=== PATIENT | female | born 1970 | race Two or more races ===

== ENCOUNTER 2018-07-23 09:42 | Outpatient (CLI) | payer BC | END 2018-07-23 23:59 | disposition home or self-care (01) | LOC: RAD 09:42 | PROVIDERS: ATTEND Family Medicine | DX: M25.511 Pain in right shoulder (principal); R20.9 Unspecified disturbances of skin sensation | CPT/HCPCS: 72040-TC; 73030-TC ==

== ENCOUNTER 2018-11-16 10:00 | Outpatient (CLI) | payer BC ==
[2018-11-16] MEDS ORDERED: IV NS 0.9% 250 ML IV ONE (10:39)
[2018-11-16] MEDS ORDERED: CT SWABBABLE VALVE TRANS SET 1 EA INFUS.SET MC ONE (10:39)
[2018-11-16] MEDS ORDERED: IOHEXOL-300 100 ML VIAL IV ONE (10:39)
== END 2018-11-16 23:59 | disposition home or self-care (01) ==
LOC: CT 10:00
PROVIDERS: ATTEND Family Medicine
DX: N20.0 Calculus of kidney (principal); K76.89 Other specified diseases of liver; N88.8 Other specified noninflammatory disorders of cervix uteri
CPT/HCPCS: 74178; J7050; Q9967

== ENCOUNTER 2019-09-07 14:16 | Outpatient (CLI) | payer BC | END 2019-09-07 23:59 | disposition home or self-care (01) | LOC: RAD 14:16 | PROVIDERS: ATTEND Family Medicine | DX: F17.210 Nicotine dependence, cigarettes, uncomplicated (principal) | CPT/HCPCS: 71046 ==

== ENCOUNTER 2020-05-18 09:48 | Outpatient (CLI) | payer BC ==
[2020-05-18 10:24] LABS: BILIRUBIN,URINE NEGATIVE (NEGATIVE); BLOOD, URINE NEGATIVE Ery/uL (NEGATIVE); COLOR,URINE YELLOW (YELLOW); LEUKOCYTE ESTERASE ,URINE NEGATIVE (NEGATIVE); NITRITE, URINE NEGATIVE (NEGATIVE); PROTEIN,URINE NEGATIVE (NEGATIVE); UGLUCOSE NEGATIVE (NEGATIVE); UROBILINOGEN,URINE 0.2 EU/dL (0.2)
== END 2020-05-18 23:59 | disposition home or self-care (01) ==
LOC: LAB 09:48
PROVIDERS: ATTEND Family Medicine
DX: N39.0 Urinary tract infection, site not specified (principal)
CPT/HCPCS: 81001; 87086-TC

== ENCOUNTER → 2020-08-13 | Outpatient (CLI) | payer BC | END | disposition home or self-care (01) | LOC: MRI 09:00 | PROVIDERS: ATTEND Family Medicine | DX: M47.817 Spondylosis without myelopathy or radiculopathy, lumbosacral region (principal); M51.27 Other intervertebral disc displacement, lumbosacral region; M48.07 Spinal stenosis, lumbosacral region | CPT/HCPCS: 72148-TC ==

== ENCOUNTER 2020-08-15 07:54 | Outpatient (CLI) | payer BC ==
[2020-08-15 08:29] LABS: BASOPHILS % (AUTO) 0.4 % (0.0-2.0); EOSINOPHILS % (AUTO) 1.5 % (0.0-6.0); HEMATOCRIT 45 % (33-45); HEMOGLOBIN 14.8 g/dL (11.5-14.8); LYMPHOCYTES # (AUTO) 2.4 /CMM (0.8-4.8); LYMPHOCYTES % (AUTO) 46.9 % (20.0-44.0); MEAN CORPUSCULAR HGB CONC 33 g/dl (31.0-36.0); MEAN CORPUSCULAR VOLUME 89 fL (82-100); MONOCYTES # (AUTO) 0.2 /CMM (0.1-1.30); MONOCYTES % (AUTO) 4.8 % (2.0-12.0); NEUTROPHILS # (AUTO) 2.4 /CMM (1.8-8.9); NEUTROPHILS % (AUTO) 46.4 % (43.0-81.0); PLATELET COUNT (AUTO) 213 /CMM (150-450); WHITE BLOOD COUNT (AUTO) 5.2 K/uL (4.3-11.0)
[2020-08-15 09:49] LABS: THYROID STIMULATING HORMONE 0.572 uIU/mL (0.358-3.74)
[2020-08-15 10:18] LABS: BILIRUBIN,TOTAL 0.4 mg/dL (0.2-1.0); CALCIUM, SERUM 9.3 mg/dL (8.5-10.1); CREATININE 0.6 mg/dL (0.6-1.3); POTASSIUM 4.2 mmol/L (3.5-5.1); TOTAL PROTEIN, SERUM 7.9 g/dL (6.4-8.2)
[2020-08-15] MEDS ORDERED: IOHEXOL-300 100 ML VIAL IV ONE (10:37)
[2020-08-15] MEDS ORDERED: IV NS 0.9% 250 ML IV ONE (10:37)
== END 2020-08-15 23:59 | disposition home or self-care (01) ==
LOC: CT 07:54
PROVIDERS: ATTEND Family Medicine
DX: E55.9 Vitamin D deficiency, unspecified (principal); J84.10 Pulmonary fibrosis, unspecified; N20.0 Calculus of kidney; K76.89 Other specified diseases of liver; R53.83 Other fatigue; R10.9 Unspecified abdominal pain; B96.81 Helicobacter pylori [H. pylori] as the cause of diseases classified elsewhere
CPT/HCPCS: 71250; 74178; 80053; 80061; 82306; 83036; 84439; 84443; 85025; J7050; Q9967; 36415

== ENCOUNTER 2020-09-12 12:21 | Outpatient (CLI) | payer BC | END 2020-09-12 23:59 | disposition home or self-care (01) | LOC: MRI 12:21 | PROVIDERS: ATTEND Family Medicine | DX: I67.82 Cerebral ischemia (principal) | CPT/HCPCS: 70551-TC ==

== ENCOUNTER 2021-07-31 08:17 | Outpatient (CLI) | payer OTHER, BC ==
[2021-08-01 08:06] LABS: *C PEPTIDE 1.7 ng/mL (1.1-4.4); *INSULIN 8.6 uIU/mL (2.6-24.9)
== END 2021-07-31 23:59 | disposition home or self-care (01) ==
LOC: LAB 08:17
PROVIDERS: ATTEND Family Medicine
DX: E16.2 Hypoglycemia, unspecified (principal)
CPT/HCPCS: 36415; 82533; 84520-TC

== ENCOUNTER 2021-08-21 11:50 | Outpatient (CLI) | payer OTHER ==
[2021-08-21] MEDS ORDERED: GADOTERATE MEGLUMINE 10 MMOL/20 ML VIAL IV ONE (11:51)
== END 2021-08-21 23:59 | disposition home or self-care (01) ==
LOC: MRI 11:50
PROVIDERS: ATTEND Family Medicine
DX: K76.89 Other specified diseases of liver (principal); E16.2 Hypoglycemia, unspecified
CPT/HCPCS: 74183; A9575

== ENCOUNTER 2022-04-23 13:14 | Outpatient (CLI) | payer OTHER ==
[2022-04-24 06:06] LABS: FOLLICLE STIMULATION HORMONE 44.3 mIU/mL (.); LUTEINIZING HORMONE 25.4 mIU/mL (.); PROLACTIN 6.9 ng/mL (4.8-23.3)
== END 2022-04-23 23:59 | disposition home or self-care (01) ==
LOC: LAB 13:14
PROVIDERS: ATTEND Family Medicine
DX: N92.6 Irregular menstruation, unspecified (principal)
CPT/HCPCS: 36415; 82627; 83001; 83002; 84146

== ENCOUNTER 2022-04-26 10:55 | Outpatient (CLI) | payer OTHER | END 2022-04-26 23:59 | disposition home or self-care (01) | LOC: US 10:55 | PROVIDERS: ATTEND Family Medicine | DX: N85.8 Other specified noninflammatory disorders of uterus (principal); N92.6 Irregular menstruation, unspecified | CPT/HCPCS: 76856-TC ==

== ENCOUNTER 2022-09-05 10:53 | Outpatient (CLI) | payer OTHER ==
[2022-09-05 11:49] LABS: CREATININE 0.6 mg/dL (0.6-1.3)
== END 2022-09-05 23:59 | disposition home or self-care (01) ==
LOC: LAB 10:53
PROVIDERS: ATTEND Family Medicine
DX: R31.9 Hematuria, unspecified (principal)
CPT/HCPCS: 36415; 82565-TC; 84520-TC

== ENCOUNTER 2022-09-06 09:57 | Outpatient (CLI) | payer OTHER ==
[2022-09-06] MEDS ORDERED: CT SWABBABLE VALVE TRANS SET 1 EA INFUS.SET MC ONE (14:01)
[2022-09-06] MEDS ORDERED: IOHEXOL-300 100 ML VIAL IV ONE (14:01)
[2022-09-06] MEDS ORDERED: IV NS 0.9% 250 ML IV ONE (14:01)
== END 2022-09-06 23:59 | disposition home or self-care (01) ==
LOC: CT 09:57
PROVIDERS: ATTEND Family Medicine
DX: R31.9 Hematuria, unspecified (principal); N20.0 Calculus of kidney; K76.89 Other specified diseases of liver
CPT/HCPCS: 74178; J7050; Q9967

== ENCOUNTER 2023-03-25 07:33 | Outpatient (CLI) | payer OTHER | END 2023-03-25 23:59 | disposition home or self-care (01) | LOC: LAB 07:33 | PROVIDERS: ATTEND Family Medicine | DX: R10.10 Upper abdominal pain, unspecified (principal) | CPT/HCPCS: 87338 ==

== ENCOUNTER 2023-11-27 06:55 | Outpatient (CLI) | payer BC | END 2023-11-27 23:59 | disposition home or self-care (01) | LOC: MRI 06:55 | PROVIDERS: ATTEND Family Medicine | DX: M25.572 Pain in left ankle and joints of left foot (principal); M25.571 Pain in right ankle and joints of right foot | CPT/HCPCS: 73718-TC; 73721-TC ==

== ENCOUNTER 2024-06-04 07:42 | Outpatient (CLI) | payer BC ==
[2024-06-04 13:16] LABS: CREATININE 0.7 mg/dL (0.6-1.3)
== END 2024-06-04 23:59 | disposition home or self-care (01) ==
LOC: LAB 07:42
PROVIDERS: ATTEND Family Medicine
DX: R31.9 Hematuria, unspecified (principal)
CPT/HCPCS: 36415; 82565-TC; 84520-TC

== ENCOUNTER 2024-11-23 08:14 | Emergency (ER) | payer OTHER ==
[~2024-11-23] VITALS: Ht 157.5 cm; Wt 63.5 kg
[2024-11-23 08:26] VITALS: BP 159/82; TEMP 98.1; O2SAT 99
== END 2024-11-23 09:48 | disposition home or self-care (01) ==
LOC: ER 08:21
DX: S63.682A Other sprain of left thumb, initial encounter (principal); X58.XXXA Exposure to other specified factors, initial encounter; Y93.89 Activity, other specified; Y92.89 Other specified places as the place of occurrence of the external cause; Y99.0 Civilian activity done for income or pay
CPT/HCPCS: 73140-TC